=== PATIENT | female | born 1990 | race Two or more races ===

== ENCOUNTER 2024-05-09 15:46 | Emergency (ER) | payer OTHER ==
[~2024-05-09] VITALS: Ht 160 cm; Wt 70.0 kg
[2024-05-09 16:18] VITALS: BP 94/65; PULSE 95; RESP 16; TEMP 97.9; O2SAT 98
[2024-05-09] MEDS ORDERED: NAPR-957 PO (17:58)
[2024-05-09] MEDS ORDERED: METH-1181 PO (17:58)
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
== END 2024-05-09 18:01 | disposition home or self-care (01) ==
LOC: EDBD 15:55 → ER 15:55
DX: M79.641 Pain in right hand (principal); M79.642 Pain in left hand; M79.18 Myalgia, other site; V89.2XXA Person injured in unspecified motor-vehicle accident, traffic, initial encounter; Y93.I9 Activity, other involving external motion; Y92.488 Other paved roadways as the place of occurrence of the external cause; Y99.8 Other external cause status
CPT/HCPCS: 73130; 81025